=== PATIENT | male | born 1995 | race African-American/Black ===

== ENCOUNTER 2023-02-04 14:36 | Emergency (ER) | payer SELFPAY ==
[~2023-02-04] VITALS: Ht 177.8 cm; Wt 73.0 kg
[2023-02-04 14:41] VITALS: O2SAT 100
[2023-02-04] MEDS ORDERED: KETOROLAC 60MG/2ML VIAL IM ONE (16:00)
[2023-02-04] MEDS ORDERED: ONDANSETRON 4MG ODT PO ONE (16:00)
[2023-02-04 16:19] LABS: BASOPHILS % 0.3 % (0.0-2.0); EOSINOPHILS % 0.3 % (0.0-5.0); HEMATOCRIT. 48.6 % (42.0-52.0); HEMOGLOBIN. 15.8 g/dL (14.0-18.0); LYMPHOCYTES % 26.1 % (20.0-50.0); MEAN CORPUSCULAR HEMOGLOBIN 27.4 pg (28.0-32.0); MEAN CORPUSCULAR HGB CONC 32.5 g/dL (31.0-37.0); MEAN CORPUSCULAR VOLUME 84.3 fL (80.0-94.0); NEUTROPHILS % 61.3 % (40.0-76.0); RED BLOOD CELL COUNT 5.77 mill/uL (4.7-6.1); RED CELL DISTRIBUTION WIDTH 14.7 % (11.6-14.6); WHITE BLOOD COUNT 6.9 x1000/uL (4.5-11.0)
[2023-02-04 16:27] LABS: DIFFERENTIAL COMMENT 1
[2023-02-04 16:34] LABS: ALANINE AMINOTRANSFERASE 15 IU/L (10-49); ALBUMIN 4.9 g/dL (3.2-4.8); ASPARTATE AMINOTRANSFERASE 28 IU/L (<34); BILIRUBIN TOTAL 1.6 mg/dL (0.1-1.0); CALCIUM 10.3 mg/dL (8.7-10.4); CARBON DIOXIDE 32 mEq/L (21-32); CHLORIDE 95 mEq/L (98-107); CREATININE 0.8 mg/dL (0.6-1.3); GLUCOSE 99 mg/dL (70-105); POTASSIUM 3.5 mEq/L (3.5-5.1); SODIUM 136 mEq/L (136-145); UREA NITROGEN BLOOD 7 mg/dL (9-23)
[2023-02-04 16:38] LABS: PLATELET 193 x1000/uL (130-400)
[2023-02-04] MEDS ORDERED: ONDA4TAB50 MT (18:23)
[2023-02-04] MEDS ORDERED: FAMO-135 MT (18:23)
[2023-02-04] MEDS ORDERED: KETOROLAC 60MG/2ML VIAL IM NR (18:33)
[2023-02-04] MEDS ORDERED: ONDANSETRON 4MG ODT PO NR (18:34)
[2023-02-04 18:52] VITALS: BP 130/84
[2023-02-04 19:27] VITALS: PULSE 78; RESP 14; TEMP 98.7
== END 2023-02-04 19:31 | disposition home or self-care (01) ==
LOC: EDBD 14:36 → ER 14:36
DX: K52.9 Noninfective gastroenteritis and colitis, unspecified (principal)
CPT/HCPCS: 99283; 80053; 83690; 85025; 36415; 96372; Q0162; J1885